=== PATIENT | male | born 1940 | race Caucasian/White ===

== ENCOUNTER 2021-04-03 17:38 | Emergency (ER) | payer BC, MEDICARE ==
[2021-04-03 18:36] LABS: HEMOGLOBIN 12.8 gm/dl (14.0-17.5); RED BLOOD COUNT 3.95 M/UL (4.20-5.50); WHITE BLOOD COUNT 7.9 K/UL (4.5-11.0)
[2021-04-03 18:57] LABS: BUN/CREATININE RATIO 29 (0-10)
== END 2021-04-03 22:00 | disposition home or self-care (01) ==
LOC: ER1 17:38
PROVIDERS: Nurse Practitioner
DX: R00.1 Bradycardia, unspecified (principal); I10 Essential (primary) hypertension; I25.10 Atherosclerotic heart disease of native coronary artery without angina pectoris
CPT/HCPCS: 71045; 80048; 82550; 82553; 83874; 83880; 84484; 85025; 93005; 99284